=== PATIENT | male | born 1985 | race Caucasian/White ===

== ENCOUNTER 2021-01-13 07:19 | Outpatient (CLI) | payer OTHER ==
--- NOTE | 2021-01-13 09:04 | MRI Report ---
PROCEDURE: Shoulder RT W/O INDICATIONS: RIGHT SHOULDER PAIN TECHNIQUE: Noncontrast oblique coronal T2 fast spin echo with fat saturation, oblique sagittal T1 spin echo and T2 fast spin echo with fat saturation, axial T1 spin echo and T2 fast spin echo with fat saturation t hrough the shoulder. COMPARISON: None. FINDINGS: Image quality: Excellent. Rotator cuff: There is moderate supraspinatus and infraspinatus tendinosis. The teres minor tendon i s intact. There is moderate tendinosis of the subscapularis tendon with low-grade intrasubstance tear ing at the superior insertion. No significant rotator cuff muscle atrophy is seen. Bones and bursae: No acute trabecular bone injury. Chronic traction cystic changes are seen at the po sterosuperior humeral head. Mild degenerative changes are seen in the acromioclavicular joint with mi ld subchondral edema. No significant subacromial/subdeltoid bursal effusion is seen. There is no sign ificant glenohumeral effusion. Capsule and soft tissues: There is nondisplaced tearing of the superior labrum extending into the pos terosuperior labrum and likely the anterosuperior labrum. No significant paralabral cyst is seen. The biceps long head tendon is intact. There is mild partial effacement of the normal fat in the rotator interval. IMPRESSION: 1.Nondisplaced tearing of the superior labrum extending into the posterosuperior and anterosuperior l abrum. 2.Low-grade partial intrasubstance tearing of the subscapularis tendon at its superior insertion supe rimposed on moderate tendinosis. 3.Moderate supraspinatus and infraspinatus tendinosis. 4.Mild acromioclavicular joint osteoarthrosis. Reviewed by: Warren Hurst MD on 01/13/2021 9:03 AM PST Approved by: Warren Hurst MD on 01/13/2021 9:03 AM PST Station ID: [id number]
== END 2021-01-13 07:20 | disposition home or self-care (01) ==
LOC: DI 07:19
PROVIDERS: ATTEND Physician Assistant
DX: S43.431A Superior glenoid labrum lesion of right shoulder, initial encounter (principal); M75.101 Unspecified rotator cuff tear or rupture of right shoulder, not specified as traumatic; M19.011 Primary osteoarthritis, right shoulder